=== PATIENT | female | born 1950 | race Caucasian/White ===

== ENCOUNTER 2017-01-17 11:52 | Outpatient (CLI) | payer OTHER, MEDICARE ==
--- NOTE | 2017-01-17 13:43 | DIAGNOSTIC IMAGING REPORT ---
PROCEDURE: MR CERVICAL SPINE W/O CONT INDICATION: R ARM PARASTHESIA TECHNIQUE: Noncontrast T1, T2, and STIR sagittal images. T2 and gradient axial images. COMPARISON: None. FINDINGS: No evidence of disc herniation. C1-2: Normal. C2-3: Normal. C3-4: Spondylosis, spinal stenosis and bilateral foraminal impingement. C4-5: Spondylosis, spinal stenosis and bilateral foraminal impingement. C5-6: Spondylosis and spinal stenosis and bilateral foraminal impingement. C6-7: Spondylosis with asymmetry bulge on the left and foraminal impingement. C7-T1: Normal. IMPRESSION: 1. Severe spondylosis, spinal stenosis and foraminal impingement at C3-4, C4-5, and C5-6.
== END 2017-01-17 23:00 ==
LOC: MRI SRH 11:52
DX: M47.812 Spondylosis without myelopathy or radiculopathy, cervical region (principal); M48.02 Spinal stenosis, cervical region